=== PATIENT | female | born 1980 ===

== ENCOUNTER 2018-09-28 16:41 | Outpatient (CLI) | payer OTHER | END 2018-09-28 16:47 | disposition home or self-care (01) | LOC: SONOGRAMA 16:41 | DX: R10.11 Right upper quadrant pain (principal) ==

== ENCOUNTER 2019-05-31 10:17 | Outpatient (CLI) | payer OTHER | END 2019-05-31 10:23 | disposition home or self-care (01) | LOC: MRI 10:17 | DX: M25.562 Pain in left knee (principal) | CPT/HCPCS: 73718 ==